=== PATIENT | female | born 1965 | race Two or more races ===

== ENCOUNTER 2016-12-20 10:11 | Emergency (ER) | payer OTHER ==
[~2016-12-20 10:11] MED LIST: CIPRO PO; LORTAB 5/500 TA1 TA1 PO; PHENERGAN25 MG PO
[2016-12-20 10:13] LABS: URINE SOURCE CLEAN CATCH
[2016-12-20 10:17] LABS: URINE APPEARANCE CLEAR; URINE BILIRUBIN NEG (NEG); URINE BLOOD 1+ (NEG); URINE COLOR DK YELLOW; URINE GLUCOSE NEG (NEG); URINE KETONE NEG (NEG); URINE LEUKOCYTE ESTERASE 3+ (NEG); URINE NITRATE POS (NEG); URINE PH 5.5 (5-8); URINE PROTEIN 1+ (NEG); URINE SPECIFIC GRAVITY 1.023 (1.003-1.035)
[2016-12-20 10:19] LABS: CULTURE INDICATED? YES; URINE BACTERIA AUWI 4+ (NEGATIVE); URINE SQUAMOUS EPITHELIAL CELL OCC /[HPF]; UWBCS1 AUWI 200-300 (0-5)
== END 2016-12-20 10:36 | disposition home or self-care (01) ==
LOC: CED 10:11
PROVIDERS: Physician Assistant Medical
DX: N30.00 Acute cystitis without hematuria (principal); Z98.51 Tubal ligation status
CPT/HCPCS: 81003; 87086; 87088; 87186; 99283